=== PATIENT | female | born 1950 | race Caucasian/White ===

== ENCOUNTER → 2016-06-27 | Outpatient (CLI) | payer BC ==
--- NOTE | 2016-06-27 15:02 | MAMMOGRAPHY REPORT ---
BILATERAL DIGITAL SCREENING MAMMOGRAM WITH CAD: 06/27/2016 CLINICAL HISTORY: Routine screening. Patient has no complaints. TECHNIQUE: Current study was also evaluated with a Computer Aided Detection (CAD) system. Bilatera l CC and MLO views were obtained. COMPARISON: Comparison is made to exams dated: 06/16/2015 mammogram, 06/14/2014 mammogram, 06/11/2013 m ammogram, 06/04/2012 mammogram, 06/03/2011 mammogram, and 05/28/2010 mammogram - [facility]. BREAST COMPOSITION: The tissue of both breasts is extremely dense, which lowers the sensitivity of mammography. FINDINGS: No suspicious masses, calcifications, or areas of architectural distortion are noted in e ither breast. There has been no significant interval change compared to prior exams. Bilateral scat tered benign-appearing calcifications are not significantly changed. A linear scar marker denotes a scar on the right anterior breast. Asymmetry within the right medial posterior breast on the cc vi ew is similar to prior exams including the 2011 and 2010 exams, and considered benign given long-ter m stability. IMPRESSION: ACR BI-RADS CATEGORY 2: BENIGN There is no mammographic evidence of malignancy. A 1 year screening mammogram is recommended. The p atient will receive written notification of the results. Approximately 10% of breast cancers are not detected with mammography. A negative mammographic repor t should not delay biopsy if a clinically suggestive mass is present. Tete Pretty M.D. /:06/27/2016 07:50:31 Chief Operating Engineer: Megan ELLIS,R, M, [facility] letter sent: Normal 1/2 BI-RADS Code: ACR BI-RADS Category 2: Benign
== END ==
LOC: C.MAMM 07:31
PROVIDERS: ATTEND Family Medicine
DX: Z12.31 Encounter for screening mammogram for malignant neoplasm of breast (principal)

== ENCOUNTER → 2017-02-25 | Outpatient (CLI) | payer BC | END | disposition home or self-care (01) | LOC: C.MAMM 12:19 | PROVIDERS: ATTEND Family Medicine | DX: M85.88 Other specified disorders of bone density and structure, other site (principal); M85.851 Other specified disorders of bone density and structure, right thigh; M85.852 Other specified disorders of bone density and structure, left thigh ==

== ENCOUNTER → 2017-07-02 | Outpatient (CLI) | payer OTHER ==
--- NOTE | 2017-07-02 15:12 | MAMMOGRAPHY REPORT ---
BILATERAL DIGITAL SCREENING MAMMOGRAM TOMOSYNTHESIS WITH CAD: 07/02/2017 CLINICAL HISTORY: Routine screening. Patient has no complaints. TECHNIQUE: Breast tomosynthesis in addition to standard 2D mammography was performed. Current study was also evaluated with a Computer Aided Detection (CAD) system. COMPARISON: Comparison is made to exams dated: 06/16/2015 mammogram, 06/27/2016 mammogram, 06/14/2014 ma mmogram, 06/11/2013 mammogram, 06/04/2012 mammogram, and 06/03/2011 mammogram - [facility]. BREAST COMPOSITION: The tissue of both breasts is extremely dense, which lowers the sensitivity of m ammography. FINDINGS: No obvious new mass, architectural distortion or cluster of suspicious microcalcifications is seen. There are diffuse bilateral benign coarse calcifications and groupings of coarse heterogen eous microcalcifications. Mild vascular calcification as well. The glandular pattern is similar to prior mammograms. IMPRESSION: ACR BI-RADS CATEGORY 1: NEGATIVE There is no mammographic evidence of malignancy. A 1 year screening mammogram is recommended. The pa tient will receive written notification of the results. Approximately 10% of breast cancers are not detected with mammography. A negative mammographic report should not delay biopsy if a clinically suggestive mass is present. Che Mtz M.D. ay/:07/02/2017 07:56:00 Basting Cleaner: Roxanna ELLIS(R)(M), [facility] letter sent: Normal 1/2 BI-RADS Code: ACR BI-RADS Category 1: Negative
== END | disposition home or self-care (01) ==
LOC: C.MAMM 07:24
PROVIDERS: ATTEND Family Medicine
DX: Z12.31 Encounter for screening mammogram for malignant neoplasm of breast (principal)

== ENCOUNTER → 2017-08-01 | Outpatient (CLI) | payer OTHER ==
--- NOTE | 2017-08-01 10:30 | DIAGNOSTIC IMAGING REPORT ---
ABDOMINAL ULTRASOUND, RIGHT UPPER QUADRANT HISTORY: Abnormal LFTs. COMPARISON: None. FINDINGS: Pancreas: The pancreatic head and tail are obscured by overlying bowel gas. The remaining portions of the pancreas are within normal limits. Liver: The liver is echogenic consistent with fatty change. Gallbladder: No gallbladder wall thickening. No gallstones. CBD: 5 mm. Right kidney: No hydronephrosis. IMPRESSION: 1. Hepatic steatosis. 2. Normal gallbladder. No gallstones. Electronically signed by: Jhon Arevalo M.D. 08/01/2017 10:29 AM Dictated Date/Time: 08/01/2017 10:24 AM
== END | disposition home or self-care (01) ==
LOC: C.ULTR 09:43
PROVIDERS: ATTEND Family Medicine
DX: R79.89 Other specified abnormal findings of blood chemistry (principal); K76.0 Fatty (change of) liver, not elsewhere classified

== ENCOUNTER 2018-09-07 07:37 | Observation (INO) ==
--- NOTE | 2018-08-31 11:03 | Anesthesiology Consultation ---
Date of Service August 31, 2018 Assessment & Plan (1) Encounter for pre-operative examination: Chart Review Chart Review: Acceptable Risk for Surgery and Patient NOT seen in Pre Admission Testing Consults Requested none History Surgery Operation Date: 09/07/18 08:50 Proposed Procedures p Left Breast lumpectomy with Needle Localization and Left [place] Lymph Node Biopsy - Dexter Steele MD, FACS Height/Weight Height: 5 ft 8 in Weight: 72.575 kg Allergies Allergy/AdvReac Type Severity Reaction Status Date / Time No Known Allergies Allergy Verified 08/27/18 10:34 Medications Home Medications Medication Instructions Recorded Confirmed Last Taken fluticasone propionate [Flonase 1 spray INTRANASAL DAILY PRN 08/27/18 08/27/18 Unknown Allergy Relief] bigisehz-ttb-efnc-FA-lutein 1 tab PO QDD 08/27/18 08/27/18 Unknown [Centrum Silver Women] Past Medical History Medical History No known health problems Seasonal allergies Past Surgical History Surgical History Hx of bilateral cataract extraction Hx of breast biopsy RIGHT Hx of section Social History Smoking Status: Former smoker Do You Dip or Chew Tobacco: No Smoking End Date: > 20 YR AGO Hx Alcohol Use: Yes Alcohol type: wine alcohol intake frequency: 0-2 drinks per day Hx Substance Use: No Testing Laboratory Results CBC 08/25/2018: WBC 6.4, hgb 14.2, hct 41.3, plt 288 Electrocardiogram Date: 08/28/18 Findings: + NSR @ (81) Nonspecific ST changes.
[~2018-09-07 07:37] MED LIST: CEFAZOLIN 2000MG 2,000 MG/15 ML SYR IV SCH; LR 15ML/HR IV SCH
[2018-09-07] MEDS ORDERED: DEXAMETHASONE SOD INJ 4 MG/ML VIAL ONE (08:45)
[2018-09-07] MEDS ORDERED: LIDOCAINE HCL 2% 2 ML VIAL/AMP(20MG/ML) INFIL ONE (08:45)
[2018-09-07] MEDS ORDERED: MIDAZOLAM HCL 1 MG/ML 2ML VIAL ONE (08:45)
[2018-09-07] MEDS ORDERED: ONDANSETRON INJ 2 MG/ML 2 ML VIAL ONE (08:45)
[2018-09-07] MEDS ORDERED: fentaNYL citrate 100 MCG/2 ML VIAL ONE ×2 (08:45→10:27)
[2018-09-07] MEDS ORDERED: PROPOFOL IV EMULSION 10 MG/ML 20 ML VIAL IV ONE (08:45)
--- NOTE | 2018-09-07 09:19 | History & Physical Bridge Note ---
Date of Service September 07, 2018 History & Physical Bridge Note I have examined the patient, reviewed the History & Physical and in the interval since the performance of the History & Physical I have noted the following changes of clinical significance: no changes noted
--- NOTE | 2018-09-07 09:30 | Nuclear Medicine Report ---
LYMPHOSCINTIGRAPHY CLINICAL HISTORY: Left-sided breast cancer. PROCEDURE: Using standard sterile technique, 4 intradermal periareolar and one deep injection of 0.5 mCi of Lymphoseek was placed in the left breast. The patient tolerated the procedure well. There were no immediate complications. The patient was subsequently transported to the surgical suite. No imagi ng was obtained at the referring physician's request. IMPRESSION: Injection of 0.5 mCi of Lymphoseek in the left breast. Electronically signed by: Abner Argueta M.D. 09/07/2018 9:29 AM
[2018-09-07] MEDS ORDERED: METHYLENE BLUE 0.5% 10 ML VIAL ONE (09:39)
[2018-09-07] MEDS ORDERED: BUPIVACAINE 0.5 % 5 MG/1 ML MPF 30ML VIAL ONE (09:39)
[2018-09-07] MEDS ORDERED: ALBUT/IPRATROP 3MG/0.5MG NEB 3 ML VIAL INH STA (10:22)
--- NOTE | 2018-09-07 10:53 | Operative Report ---
Post Operative Report Pre & Post Diagnosis Operation Date: 09/07/18 10:30 Pre-Op Diagnosis: Left Breast Cancer Post-Op Diagnosis: Left Breast Cancer Procedure Operation Date: 09/07/18 10:30 Actual Procedures p Left Breast Lumpectomy with Needle Localization and Left [place] Lymph Node Biopsy(Left) - Dexter Steele MD, FACS Surgeon Dexter Steele MD, FACS Railway Switchman Marina Zamora Estimated Blood Loss 10 Findings Consistent with Post-Op Diagnosis Specimens lt breast tissue and Lt axillary lymph node Description of Procedure see dictation I attest to the content of the Intraoperative Record and any orders documented therein. Any exceptions are noted below.
[2018-09-07] MEDS ORDERED: ACETAMINOPHEN 1,000 MG/100 ML VIAL IV ONE (10:54)
[2018-09-07] MEDS ORDERED: fentaNYL citrate 100 MCG/2 ML VIAL IV PRN (11:21)
[2018-09-07] MEDS ORDERED: ONDANSETRON INJ 2 MG/ML 2 ML VIAL IV PRN ×2 (11:21→12:06)
[2018-09-07] MEDS ORDERED: ePHEDrine sulfate 50 MG/ML AMP IV PRN (11:21)
[2018-09-07] MEDS ORDERED: ATROPINE SULFATE 0.1 MG/ML 10ML SYR IV PRN (11:21)
[2018-09-07] MEDS ORDERED: HYDROmorphone INJ 1 MG/ML SYRINGE IV PRN (11:21)
--- NOTE | 2018-09-07 11:46 | Anesthesiology Progress Note ---
Date of Service September 07, 2018 Anesthesia Post Procedure Vital Signs Vital Signs: Temp Pulse Resp BP Pulse Ox 09/07/18 11:40 82 16 137/71 98 09/07/18 11:30 83 21 139/73 100 09/07/18 11:20 87 18 142/73 H 100 09/07/18 11:10 36.7 C 24 140/79 100 09/07/18 09:08 18 159/78 H 100 Pain Intensity Left Breast: Pain Intensity: 2 Transfer of Care Handoff Completed per policy Notes Mental Status: alert / awake / arousable and participated in evaluation Patient Amnestic to Procedure: Yes Nausea / Vomiting: adequately controlled Pain: adequately controlled Airway Patency, RR, SpO2: stable & adequate BP & HR: stable & adequate Hydration State: stable & adequate Anesthetic Complications: no major complications apparent and Pt Satisfied with anesthetic care
[2018-09-07] MEDS ORDERED: PROMETHAZINE HCL 12.5 MG in SODIUM CHLORIDE 0.9% 50 ML IV PRN (12:06)
[2018-09-07] MEDS ORDERED: PROMETHAZINE HCL 25 MG in SODIUM CHLORIDE 0.9% 50 ML IV PRN (12:06)
[2018-09-07] MEDS ORDERED: ACETAMINOPHEN 325 MG TAB PO PRN (12:06)
[2018-09-07] MEDS ORDERED: HYDROCODONE/ACETAMOPHEN 5/325MG TAB PO PRN ×2 (12:06)
[2018-09-07] MEDS ORDERED: MoRPHine SULFATE 4 MG/ML 1 ML CARP\\VIAL IV PRN (12:06)
[2018-09-07] MEDS ORDERED: MoRPHine SULFATE 2 MG/ML CARP IV PRN (12:06)
[2018-09-07] MEDS ORDERED: IBUPROFEN 600 MG TAB PO PRN (12:06)
[2018-09-07] MEDS ORDERED: SODIUM CHLORIDE 0.9% 1000ML 1,000 ML IV SCH (12:30)
[2018-09-07 12:54] LABS: Creatinine Clr Calc Pharmacy 67.3 ml/min; Est GFR (African American) 85.2; Est GFR (Non-African American) 73.5
--- NOTE | 2018-09-07 14:09 | Hospitalist Consultation ---
Date of Consultation September 07, 2018 Assessment & Plan (1) Breast lump: post op and doing well. notes no significant pain. notes no chronic diseases requiring management. appears well for situation. will be available as-needed should problems arise. History of Present Illness Reason for Consultation: post op medical management Requesting Physician: Dr Steele Attending Physician: Dexter Steele MD, FACS History of Present Illness feeling good. no significant pain. no sob/no other complaints notes no chronic medical hx. Allergies Allergy/AdvReac Type Severity Reaction Status Date / Time No Known Allergies Allergy Verified 08/27/18 10:34 Home Medications Home Medications Medication Instructions Recorded Confirmed Type fluticasone propionate [Flonase 1 spray INTRANASAL DAILY PRN 08/27/18 09/07/18 History Allergy Relief] xwvtahye-bry-gyic-FA-lutein 1 tab PO QDD 08/27/18 09/07/18 History [Centrum Silver Women] hydrocodone-acetaminophen [Wilson] 1 tab PO Q6H PRN #30 tab 09/07/18 Rx Patient History Medical History No known health problems Seasonal allergies Surgical History Hx of bilateral cataract extraction Hx of breast biopsy RIGHT Hx of section Social History Preferred Language: Albanian Communication Ability: Effective Beliefs That Will Affect Care: None Current Living Situation: Spouse Feels Safe at Home: Yes Safety Concerns: Feels Safe At This Time Smoking Status: Former smoker Do You Dip or Chew Tobacco: No Smoking End Date: > 20 YR AGO Second Hand Exposure: No Hx Alcohol Use: Yes Alcohol type: wine Hx Substance Use: No Review of Systems Review of Systems: All systems reviewed & are unremarkable except as noted in HPI & below Physical Exam Physical Exam: gen - pleasant nad. heent nc at mmm. breathing unlabored no accessory muscles good effort. skin no rashes no pallor or icterus. neuro cn 2-12 grossly intact gross motor/sensory intact. mental good recent and remote recall. Results & Data Vital Signs (Past 12 Hours) Vital Signs Temp Pulse Resp BP Pulse Ox 09/07/18 13:48 36.6 C 82 16 122/70 94 09/07/18 13:07 36.9 C 86 16 125/73 95 09/07/18 12:35 36.3 C L 79 16 130/73 96 09/07/18 12:15 36.7 C 85 16 146/77 H 98 09/07/18 11:50 36.5 C 81 14 139/71 97 09/07/18 11:40 82 16 137/71 98 09/07/18 11:30 83 21 139/73 100 09/07/18 11:20 87 18 142/73 H 100 09/07/18 11:10 36.7 C 24 140/79 100 09/07/18 09:08 18 159/78 H 100 PG Care Time/CCT Total # of Minutes Spent Total Time Spent with Patient: Total time spent is greater than 50% in coordination of care (as documented) at patient's floor/unit and/or counseling patient:
--- NOTE | 2018-09-07 14:41 | Operative Report ---
DATE OF OPERATION: 09/07/2018 NAME OF OPERATION: Needle localization, left lumpectomy with sentinel lymph node biopsy. PREOPERATIVE DIAGNOSIS: Left breast cancer. POSTOPERATIVE DIAGNOSIS: Left breast cancer. STAFF SURGEON: Dexter Steele MD TRAINING SPECIALIST: Addi Mari PA-C and Daisy Fountain. ANESTHESIA: General. DESCRIPTION OF PROCEDURE: The patient was brought in the operating room and placed on the operating table in supine position. Her left arm and axilla and chest were prepped and draped in usual fashion. She had a needle placed in the inferior breast at approximately 5:00. My publisher assistant helped with prepping, draping, removal of the breast tissue and lymph node and closure of the wounds. Initially, incision was made in the left axilla using the Neoprobe dissecting deep into the axilla, identifying the sentinel lymph node which was sent for frozen section. The frozen section was negative. Deep tissue was reapproximated using 2-0 plain suture. Elliptical incision was then made around the needle in the left breast carrying dissection down around the needle. The initial tissue was marked with the needle and skin inferior, long silk suture lateral, short silk suture medial and then methylene blue was used to josué the deep superior margin. Additional inferior tissue was taken and marked with long silk suture lateral, short silk suture medial and methylene blue new margin. Additional superior/retroareolar tissue was taken and marked with long silk suture lateral, short medial and methylene blue was new margin. Clips were placed at the tip of the needle, then the deep tissue was reapproximated using 2-0 plain suture. The axilla closed using 4-0 nylon suture. The breast skin closed using subcuticular 4-0 Monocryl and some intermittent 5-0 Prolene sutures. Dressings applied and the patient transferred to recovery room in stable condition. I attest to the content of the Intraoperative Record and any orders documented therein. Any exception s are noted below.
--- NOTE | 2018-09-07 15:10 | Mammography Report ---
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 P madhavi presents for preoperative needle and wire localization prior to surgical excision. COMPARISON: Comparison is made to exams dated: 08/28/2018 breast MRI, 08/13/2018 ultrasound biopsy, mammogram, 08/07/2018 mammogram, 08/07/2018 ultrasound, and 07/29/2018 mammogram - [facility]. PATIENT CONSENT: The risks of the procedure were explained to the patient and informed consent was ob tained. The patient denied eating or drinking anything this morning that would preclude anesthesia. She also denied allergy to lidocaine. A timeout was performed and the left breast was confirmed as a site for preoperative localization. PROCEDURE DESCRIPTION: Prior left breast imaging was reviewed including left diagnostic mammograms an d ultrasound 08/07/2018, left breast ultrasound-guided biopsy and post procedure mammograms 08/13/2018, screening mammograms 07/29/2018, 07/02/2017, 06/27/2016. The spiculated mass with associated ribbon-sh aped biopsy clip in the 4:00 posterior left breast is the intended target for preoperative localizati on. The patient was placed in the right lateral decubitus position with left arm extended. The skin of the left breast was cleansed with Betadine and sterile drapes were placed. 1% buffered Lidocaine without epinephrine was administered as local anesthesia. A 5cm Richardson II needle and wire combinati on was inserted into the breast, through the mass with associated architectural distortion. Optimal p ositioning was confirmed and the wire was locked in place, leaving both the needle and wire within th e breast, as per surgeon's preference. Post ultrasound localization mammography was performed and th e tip of the needle extends through the loop of the ribbon-shaped biopsy clip. The entire procedure including approach and needle length were discussed with the operating surgeon prior to surgery. The patient tolerated the procedure well and there was no immediate complication. She was sent to the o perating room in satisfactory condition. A surgical specimen radiograph was obtained which demonstrates the localizing needle and wire combina tion as well as the ribbon-shaped biopsy clip, compatible with successful preoperative localization a nd subsequent surgical excision. There are a few faint amorphous calcifications within the specimen as well. Additional tissue was obtained in the proximity of the distal tip of the needle. IMPRESSION: NEEDLE LOCALIZATION Status post preoperative needle and wire localization for biopsy-proven carcinoma in the 4:00 left br east. The imaged specimen includes the intended abnormalities. Final surgical pathology is pending. Che Mtz M.D. ay/:09/07/2018 11:13:08 Rate Engineer: Sakina Melendez, RT(R)(M), [facility]; January Lazar, RT(R )(M), [facility]
[2018-09-07] MEDS: CEFAZOLIN 1000MG 1,000 MG/7.5 ML SYR IV SCH (20:03)
[2018-09-08] MEDS: CEFAZOLIN 1000MG 1,000 MG/7.5 ML SYR IV SCH (03:58)
--- NOTE | 2018-09-08 06:57 | Discharge Summary ---
PRINCIPAL DIAGNOSIS: Left breast cancer. PROCEDURES: The patient underwent needle localization, left breast injection, left breast lumpectomy with sentinel lymph node biopsy. HISTORY OF PRESENT ILLNESS AND HOSPITAL COURSE: The patient is a 68-year-old female with biopsy proven left breast cancer, brought into the hospital for definitive therapy. She initially underwent needle localization and then she was taken to radiology where she underwent left breast injection for sentinel lymph node biopsy and she was taken to the operating room where she underwent left sentinel lymph node biopsy which was negative and left lumpectomy which she tolerated very well and has done well overnight and is felt stable for discharge home today. She will be followed in the surgical clinic next week.
[2018-09-08 07:32] LABS: Creatinine Clr Calc Pharmacy 79.7 ml/min; Est GFR (African American) 104.6; Est GFR (Non-African American) 90.3
--- NOTE | 2018-09-08 07:36 | Anesthesiology Progress Note ---
Date of Service September 08, 2018 Anesthesia Post Procedure Vital Signs Vital Signs: Temp Pulse Resp BP Pulse Ox 09/08/18 03:25 36.6 C 87 16 109/62 95 09/07/18 23:29 36.7 C 96 H 16 120/68 94 09/07/18 18:57 36.8 C 98 H 20 121/66 95 09/07/18 15:07 36.6 C 89 21 121/68 96 09/07/18 14:00 36.6 C 93 H 18 127/72 94 09/07/18 13:48 36.6 C 82 16 122/70 94 09/07/18 13:07 36.9 C 86 16 125/73 95 09/07/18 12:35 36.3 C L 79 16 130/73 96 09/07/18 12:15 36.7 C 85 16 146/77 H 98 09/07/18 11:50 36.5 C 81 14 139/71 97 09/07/18 11:40 82 16 137/71 98 09/07/18 11:30 83 21 139/73 100 09/07/18 11:20 87 18 142/73 H 100 09/07/18 11:10 36.7 C 24 140/79 100 09/07/18 09:08 18 159/78 H 100 Pain Intensity Left Breast: Pain Intensity: 0 Notes Mental Status: alert / awake / arousable and participated in evaluation Patient Amnestic to Procedure: Yes Nausea / Vomiting: adequately controlled Pain: adequately controlled Airway Patency, RR, SpO2: stable & adequate BP & HR: stable & adequate Hydration State: stable & adequate Anesthetic Complications: no major complications apparent and Pt Satisfied with anesthetic care
[2018-09-08 08:08] VITALS: PULSE 80; TEMP 98.1; O2SAT 99
[2018-09-08 09:28] VITALS: BP 109/62
== END 2018-09-08 09:53 | disposition home or self-care (01) ==
LOC: 3W 07:37 → ASU 07:37